=== PATIENT | male | born 1985 | race Hispanic/Latino ===

== ENCOUNTER 2019-11-13 13:41 | Emergency (ER) | payer MEDICAID ==
[2019-11-13] MEDS ORDERED: TETANUS/DIPHTHERIA TOXOID [ADULT] 0.5 ML VIAL IM ONE (14:43)
== END 2019-11-13 15:24 | disposition home or self-care (01) ==
LOC: EDH 13:41
DX: S01.01XA Laceration without foreign body of scalp, initial encounter (principal); F32.9 Major depressive disorder, single episode, unspecified; Z72.0 Tobacco use; Z88.6 Allergy status to analgesic agent; W18.39XA Other fall on same level, initial encounter; Y93.89 Activity, other specified; Y92.098 Other place in other non-institutional residence as the place of occurrence of the external cause; Y99.8 Other external cause status
CPT/HCPCS: 90471; 90714